=== PATIENT | male | born 1990 | race Caucasian/White ===

== ENCOUNTER 2023-01-01 21:24 | Emergency (ER) | payer SELFPAY ==
[~2023-01-01] VITALS: Ht 180.3 cm; Wt 87.7 kg
[2023-01-01] MEDS ORDERED: KETOROLAC 60MG/2ML VIAL IM ONE (23:30)
[2023-01-01] MEDS ORDERED: CYCLOBENZAPRINE 10MG TABLET PO ONE (23:30)
[2023-01-01] MEDS: LIDOCAINE 5% PATCH TOP SCH (23:56)
[2023-01-02] MEDS ORDERED: CYCL10TA21 MT ×2 (00:08)
[2023-01-02] MEDS ORDERED: LIDO700A15 TP ×2 (00:08)
[2023-01-02] MEDS ORDERED: IBUP-2030 MT ×2 (00:08)
[2023-01-02 00:27] VITALS: BP 159/91
[2023-01-02] MEDS: LIDOCAINE 5% PATCH TOP SCH (00:27)
[2023-01-02] MEDS ORDERED: HYDROCODONE/ACETAMINOPHEN 5/325MG TABLET PO ONE (01:00)
== END 2023-01-02 00:35 | disposition left against medical advice (07) ==
LOC: ER 21:24
DX: S39.012A Strain of muscle, fascia and tendon of lower back, initial encounter (principal); E11.9 Type 2 diabetes mellitus without complications; Z90.49 Acquired absence of other specified parts of digestive tract; X50.1XXA Overexertion from prolonged static or awkward postures, initial encounter; Y93.89 Activity, other specified; Y92.89 Other specified places as the place of occurrence of the external cause; Y99.8 Other external cause status
CPT/HCPCS: 96372; 99283; J1885